=== PATIENT | male | born 1975 | race Caucasian/White ===

== ENCOUNTER 2018-08-23 21:30 | Emergency (ER) | payer MEDICAID ==
[~2018-08-23] VITALS: Ht 172.7 cm; Wt 81.6 kg
[2018-08-23 21:44] VITALS: BP_SYST 146
--- NOTE | 2018-08-23 22:02 | NUR ---
Pt placed to ER waiting room in stable condition.
--- NOTE | 2018-08-23 22:10 | NUR ---
Pt brought by family member, A&Ox4, pt presents to ER with L chest pain radiating to L face,pt also c/o numbness on bilateral upper extremities, skin pink and warm, cap refill <3, VSS , respirations even and unlabored, pt ambulatory.
--- NOTE | 2018-08-23 22:10 | NUR ---
Placed in room 7 . Placed on school bus monitor, blood pressure machine and pulse oximeter. To gown for exam. Side rails up. Report given to SHANNA COPELAND.
--- NOTE | 2018-08-23 22:11 | NUR ---
ER at bedside examining patient.
--- NOTE | 2018-08-23 23:20 | NUR ---
#20 gauge angiocath placed to LAC. Use of asceptic technique. Opsite placed over site. Blood return noted. Blood for lab drawn from site. Flushed with 10 cc of normal saline. No evidence of infiltration noted. Patient tolerated well.
[2018-08-23] MEDS: NITROGLYCERIN 1 INCH (GM) OINT. TP ONE (23:24)
[2018-08-23] MEDS: MORPHINE 4 MG/ML INJ. SYRINGE IVP ONE (23:24)
[2018-08-23 23:54] LABS: HEMATOCRIT 46.4 % (36-54); HEMOGLOBIN 15.1 g/dL (14.0-18.0); MEAN CORPUSCULAR VOLUME 77 fL (79.0-98.0); RED BLOOD CELL COUNT(AUTO) 6.03 MIL/uL (4.2-6.2); WHITE BLOOD COUNT (AUTO) 10.8 K/uL (4.8-10.8)
[2018-08-23 23:55] LABS: MEAN CORPUSCULAR HEMOGLOBIN 25 pg (27-31); MEAN CORPUSCULAR HGB CONC 33 % (32-36); PLATELET COUNT (AUTO) 180 K/uL (130-430); RED CELL DISTRIBUTION WIDTH 14.1 % (9.0-15.0)
[2018-08-24 00:06] LABS: PROTHROMBIN TIME 10.3 SECS (9.5-12.5)
[2018-08-24 00:07] LABS: BASOPHILS % (AUTO) 0.6 % (0.0-2.0); CALCIUM 9.1 mg/dL (8.4-11.0); CREATININE 0.7 mg/dL (0.55-1.30); EOSINOPHILS % (AUTO) 2.5 % (0.0-4.0); LYMPHOCYTES # (AUTO) 3.4 K/uL (1.0-5.5); LYMPHOCYTES % (AUTO) 31.1 % (20.5-51.5); MONOCYTES # (AUTO) 0.8 K/uL (0.0-1.0); MONOCYTES % (AUTO) 7.2 % (1.7-9.3); NEUTROPHILS # (AUTO) 6.3 K/uL (1.8-7.7); NEUTROPHILS % (AUTO) 58.6 % (40.0-70.0); POTASSIUM 3.2 mmol/L (3.5-5.1)
[2018-08-24 00:08] LABS: BASOPHILS # (AUTO) 0.1 K/uL (0.0-0.2); EOSINOPHILS # (AUTO) 0.3 K/uL (0.0-0.4)
--- NOTE | 2018-08-24 00:13 | NUR ---
Dr. Thorne at bedside discusing POC.
[2018-08-24 00:18] LABS: ALBUMIN 3.5 g/dL (3.4-4.8); TOTAL BILIRUBIN 0.5 mg/dL (0.0-1.0)
[2018-08-24 00:25] VITALS: BP_SYST 141
--- NOTE | 2018-08-24 00:25 | NUR ---
Patient given written and verbal discharge instructions and verbalizes understanding. ER MD discussed with patient the results and treatment provided. Patient in stable condition. ID arm band removed. IV catheter removed intact and dressing applied, no active bleeding. No Rx given. Patient educated on pain management and to follow up with PMD. Pain Scale 2/10. Opportunity for questions provided and answered. Medication side effect fact sheet provided.
== END 2018-08-24 00:25 | disposition home or self-care (01) ==
LOC: SED 21:30
DX: I20.9 Angina pectoris, unspecified (principal); Z71.6 Tobacco abuse counseling
CPT/HCPCS: 36415; 71045; 80053; 83880; 84484; 85025; 85379; 85610; 85730; 93005; 96374; 99284; J2270

== ENCOUNTER 2020-12-25 22:10 | Emergency (ER) | payer MEDICAID ==
[~2020-12-25] VITALS: Ht 162.6 cm; Wt 74.4 kg
[2020-12-25 22:14] VITALS: BP_SYST 155
[2020-12-25] MEDS ORDERED: MORPHINE 4 MG INJ. 4 MG/ML VIAL IM ONE (22:45)
[2020-12-26] MEDS ORDERED: HYDR-3917 PO (01:10)
[2020-12-26 01:15] VITALS: BP_SYST 148
== END 2020-12-26 01:15 | disposition home or self-care (01) ==
LOC: SED 22:10
DX: G89.18 Other acute postprocedural pain (principal); M79.641 Pain in right hand; Z88.2 Allergy status to sulfonamides; Z79.899 Other long term (current) drug therapy
CPT/HCPCS: 96372; 99283; J2270

== ENCOUNTER 2021-09-01 21:26 | Emergency (ER) | payer MEDICAID ==
[~2021-09-01] VITALS: Ht 175.3 cm; Wt 84.4 kg
[~2021-09-01 21:26] MED LIST: HYDR-3917 PO
[2021-09-01 21:30] VITALS: BP_SYST 178
--- NOTE | 2021-09-01 21:36 | NUR ---
45 YR OLD MALE AOX4, AMBULATORY WITH COMPLAINT OF CHEST PAIN 8 WITH SOB. PT IS PRIMARILY BULGARIAN SPEAKING AND IS ACCOMPANIED BY HIS FOR INTERPRETATION. PT REPORTS PT HISTORY OF CARDIAC CATHETERIZATION NOVEMBER 2020, HTN, AND CARDIAC ISSUES. PT REPORTS PT SMOKES ONE PACK OF CIGARETTES A DAY AND IS UNDER ALOT OF STRESS. PT HAD EKG IN TRIAGE COMPLETE. AT THE BEDSIDE. REPORT PROVIDED TO DINORAH NAIR.
[2021-09-01] MEDS ORDERED: NITROGLYCERIN LINGUAL 400 mCg/SPRAY ONE (21:42)
--- NOTE | 2021-09-01 21:42 | NUR ---
PER MD ORDER (MITCH REYNA) PT ADMINISTERED SUBLINGUAL NITRO SPRAY (ONE TIME).
[2021-09-01] MEDS: NITROGLYCERIN LINGUAL 400 mCg/SPRAY SL STA (22:06)
[2021-09-01] MEDS: ASPIRIN 81 MG TAB.CHEW PO ONE (22:12)
[2021-09-01 22:14] LABS: BASOPHILS # (AUTO) 0.1 K/uL (0.0-0.2); BASOPHILS % (AUTO) 0.6 % (0.0-2.0); EOSINOPHILS # (AUTO) 0.3 K/uL (0.0-0.4); EOSINOPHILS % (AUTO) 2.8 % (0.0-4.0); HEMATOCRIT 47.1 % (36-54); HEMOGLOBIN 15.5 g/dL (14.0-18.0); MEAN CORPUSCULAR HEMOGLOBIN 25 pg (27-31); MEAN CORPUSCULAR HGB CONC 33 % (32-36); MEAN CORPUSCULAR VOLUME 75 fL (79.0-98.0); MONOCYTES # (AUTO) 0.6 K/uL (0.0-1.0); MONOCYTES % (AUTO) 6.9 % (1.7-9.3); NEUTROPHILS # (AUTO) 5.2 K/uL (1.8-7.7); NEUTROPHILS % (AUTO) 56.7 % (40.0-70.0); PLATELET COUNT (AUTO) 186 K/uL (130-430); RED BLOOD CELL COUNT(AUTO) 6.29 MIL/uL (4.2-6.2); WHITE BLOOD COUNT (AUTO) 9.2 K/uL (4.8-10.8)
[2021-09-01 22:16] LABS: CALCIUM 9.5 mg/dL (8.4-11.0); CREATININE 0.76 mg/dL (0.55-1.30); POTASSIUM 3.4 mmol/L (3.5-5.1)
[2021-09-01] MEDS: MORPHINE 2 MG/ML INJ. SYRINGE IVP ONE (22:20)
[2021-09-01 22:22] LABS: ALBUMIN 3.7 g/dL (3.4-4.8); TOTAL BILIRUBIN 0.3 mg/dL (0.0-1.0)
[2021-09-01 22:25] LABS: PROTHROMBIN TIME 10.4 SECS (9.5-12.5)
--- NOTE | 2021-09-01 23:00 | NUR ---
PATIENT A/OX4. PATIENT RESTING IN BED WITH EYES OPEN, NO C/O PAIN OR S/S OF DISCOMFORT. PATIENT'S CHEST RISE AND FALL SYMMETRICAL. BED IN LOW AND LOCKED POSITION.
--- NOTE | 2021-09-02 00:17 | NUR ---
Critical Troponin result of 662.[address] P[address] Peralta verbalized understanding of result and stated patient "will be admitted."
--- NOTE | 2021-09-02 00:33 | NUR ---
Dr. Peralta verbally informed of all other abnormal lab results. Dr. Peralta verbalized understanding of results, no new orders.
--- NOTE | 2021-09-02 00:35 | NUR ---
Patient informed by Dr. Peralta that patient needs to be admitted in hospital due to history. Patient and patient's stated that patient "wants to go to [facility] in morning." Dr. Peralta stressed critical need for patient to stay and be admitted. Patient requests to leave against medical advice.
--- NOTE | 2021-09-02 00:37 | NUR ---
Note undone in [facility] - 09/02/21 at 0145 by [email or web address] Patient informed [address] Dr[address] Peralta that patient needs to be admitted in hospital due to critical lab result, and patient is "having a heart attack." Patient and patient's stated that patient "wants to go to [facility] in morning." Dr. Peralta stressed critical need for patient to stay and be admitted. Patient requests to leave against medical advice. Addendum: 09/02/21 at 0042 by [email or web address] Amendment undone in [facility] - 09/02/21 at 0145 by [email or web address] Patient informed by Dr[address] Peralta that patient needs to be admitted in hospital due to critical lab result, and patient is "having a heart attack." Patient and patient's stated that patient "wants to go to [facility] in morning." Dr. Peralta stressed critical need for patient to stay and be admitted. Patient requests to leave against medical advice. Risks explained to patient and patient's and for patient to seek treatment immediately.
--- NOTE | 2021-09-02 00:44 | NUR ---
Patient given written and verbal discharge instructions and verbalizes understanding. ER MD Dr. Peralta discussed with patient the results and treatment provided, as well as critical need to be admitted. Patient signed AMA form. ID arm band removed. IV catheter removed intact and dressing applied, no active bleeding. Patient educated on need to be admitted. Pain Scale 0/10, skin intact. Opportunity for questions provided and answered. Medication side effect fact sheet provided. Patient A/Ox4. Patient left with and all belongings. Patient and stated they "are going to [facility]." Patient walks with strong gait.
--- NOTE | 2021-09-02 02:29 | NUR ---
After mistake discovered in which Pharmacy Intern Jennifer reported wrong Troponin result, physician called patient's and explained that patient is "not having a heart attack." Patient's verbalized understanding, no further questions from patient's .
[2021-09-02 05:04] VITALS: BP_SYST 125
== END 2021-09-02 00:44 | disposition left against medical advice (07) ==
LOC: SED 21:26
DX: R07.89 Other chest pain (principal); I10 Essential (primary) hypertension; Z88.2 Allergy status to sulfonamides; Z79.899 Other long term (current) drug therapy
CPT/HCPCS: 36415; 71045; 80053; 83880; 84484; 85025; 85379; 85610; 93005; 96374; 99285; J2270